=== PATIENT | male | born 1950 | race Caucasian/White ===

== ENCOUNTER 2017-02-23 16:32 | Inpatient (IN) ==
[2017-02-23] MEDS ORDERED: 0.9 % Sodium Chloride 1,000 ML IVC ONE (16:47)
--- NOTE | 2017-02-23 16:52 | Emergency Department Note ---
Disposition Clinical Impression: Generalized weakness Disposition: Admitted As Inpatient Condition: Fair Time of Disposition: 19:00 Weakness HPI - General Chief complaint: ED Weakness Stated complaint: FALL/WEAKNESS Time Seen by Provider: 02/23/17 16:36 Source: patient, EMS Limitations: no limitations Nursing Notes Reviewed: Yes Vital Signs Reviewed: Yes - History of Present Illness HPI Narrative: 66-year-old male presents generalized weakness for the last 3 days. Patient is a history of 2 strokes, one ischemic or bleeding. Patient does take Plavix but not aspirin. Patient also states that he had a fall today, does not think he hit his head but is unsure. This happened when he was in the bathroom. He states that he has been progressively weak and is unable to ambulate for last few days. She does normally use a cane to ambulate. He felt acutely worse the last 3 or 4 hours prior to arrival, but also had a fall in the morning, last and well was really on Tuesday morning which is 2 days ago. He states that the stroke left him with peripheral weakness but he is normally able to ambulate and have normal ADLs. Patient denies any chest pain and hemoptysis fever chills dysuria hematuria and nausea vomiting Pt Subjective Complaint: generalized weakness/fatigue, difficulty ambulating Onset (ago): day(s) (3) Duration: constant Location: generalized Pain Severity: moderate Pain Scale: 6 If pain, quality: numbness, aching Improves with: none Worsens with: none Associated symptoms: Reports: denies other symptoms. Denies: chest pain, confusion, dark stools, diaphoresis, headaches - Related Data Home Medications Medication Instructions Recorded Confirmed Amoxicillin [Amoxil] 1,000 mg PO BID 02/23/17 02/23/17 Citalopram Hydrobromide 20 mg PO DAILY 02/23/17 02/23/17 [Citalopram HBr] Clarithromycin [Biaxin] 500 mg PO BID 02/23/17 02/23/17 Clopidogrel [Plavix] 75 mg PO DAILY 02/23/17 02/23/17 Lisinopril [Zestril] 10 mg PO DAILY 02/23/17 02/23/17 Metoprolol [Lopressor] 50 mg PO BID 02/23/17 02/23/17 Omeprazole [PriLOSEC] 20 mg PO BID 02/23/17 02/23/17 Rosuvastatin Calcium [Rosuvastatin 5 mg PO DAILY 02/23/17 02/23/17 Calcium] Allergies Allergy/AdvReac Type Severity Reaction Status Date / Time No Known Allergies Allergy Verified 05/19/16 09:40 All systems ED: reviewed and negative except as stated. Review of Systems: As Per HPI Constitutional: Reports: as per HPI, weakness. Denies: fever, chills Eyes: Denies: eye pain ENT ED: Denies: ear pain Cardiovascular: Denies: chest pain Respiratory: Denies: cough, dyspnea Gastrointestinal: Denies: abdominal pain, nausea Genitourinary: Denies: urgency, dysuria Musculoskeletal: Denies: back pain Integumentary: Denies: rash Neurological: Reports: as per HPI, weakness. Denies: headache, numbness, paresthesias, abnormal gait Psychiatric: Denies: anxiety Endocrine: Denies: fatigue Past Medical History - Past Medical History Attestation: Yes The following information was validated with the patient. Source: patient Medical history: Reports: CVA, hyperlipidemia, myocardial infarction, TIA Psychiatric history: Reports: no psych history - Social History Smoking Status: Current every day smoker Alcohol use: Reports: none Drug use: Reports: none Physical Exam Constitutional: NAD, vital signs reviewed elevated blood pressure Eyes: PERRLA, sclera anicteric ENT & Mouth: MM dry Neck: normal inspection, neck is supple Resp: CTA bilaterally, no resp distress CV: RRR, no m/g/r GI: normal inspection, soft, no guarding or rigidity Neuro: A&O3, CNII-XII grossly intact, 3 out of 5 muscle strength upper extremity , 2 out of 5 muscle strength bilateral lower extremity, diplopia on visual testing testing, visual rodriguez intact, mild dysmetria with finger to nose testing. Skin: on limited exam, skin intact with no rashes or lesions - General Limitations: no limitations General appearance: alert Course Course Narrative: 66-year-old male with generalized weakness, history of strokes, his NIH scale is 7 but his deficits are bilateral and is way outside of the window for TPA, this time plan is for CT head stat basic lab work blood cultures CBC BMP troponin, TSH plan is for likely admission as his gait is not testable due to weakness - Reevaluation(s) Reevaluation #1: Patient admitted to the hospitalist Dr. Pierre accepted. Vital Signs Temperature 98 F 02/23/17 16:34 Pulse Rate 63 02/23/17 16:34 Respiratory Rate 22 02/23/17 16:34 Blood Pressure 200/129 02/23/17 16:34 O2 Sat by Pulse Oximetry 95 02/23/17 16:34 Temperature 97.8 F 02/23/17 19:13 Pulse Rate 59 02/23/17 19:13 Respiratory Rate 18 02/23/17 19:13 Blood Pressure 163/105 02/23/17 19:13 O2 Sat by Pulse Oximetry 95 02/23/17 19:13 Oxygen Delivery Oxygen Delivery Room Air Weakness - Differential Diagnosis Differential Diagnosis: Likely: acute myocardial infarction, hypoglycemia, sepsis/infection, dehydration - Medical Records Medical records reviewed: Yes I reviewed the patient's medical records. - Lab Data Lab results reviewed: Yes I reviewed the patient's lab results. Result diagrams: 02/23/17 16:55 02/23/17 16:55 Lab Results 02/23/17 02/23/17 02/23/17 Range/Units 16:41 16:55 16:55 WBC (4.3-11.1) K/mcL RBC (4.19-5.50) M/mcL Hgb (12.9-16.9) g/dL Hct (37.5-50.1) % MCV (83.0-100.0) fL MCH (28.0-33.3) pg MCHC (31.6-35.5) g/dL RDW (11.5-14.5) % Plt Count (140-400) K/mcL MPV (9.4-12.4) fL Immature Gran % (0-4) % Seg Neutrophils % % Lymphocytes % % Monocytes % % Eosinophils % % Basophils % % Neutrophils # (1.6-8.9) K/mcL Lymphocytes # (0.6-4.6) K/mcL Monocytes # (0.0-1.3) K/mcL Eosinophils # (0.0-0.6) K/mcL Basophils # (0.0-0.2) K/mcL Sodium (136-145) mEq/L Potassium (3.5-4.5) mEq/L Chloride (98-109) mEq/L Carbon Dioxide (19-29) mEq/L BUN (8-26) mg/dL Creatinine (0.72-1.25) mg/dL Est GFR ( Amer) (> 60) Est GFR (Non-Af Amer) (> 60) BUN/Creatinine Ratio (6-26) Glucose (70-99) mg/dL POC Glucose 94 H (58-89) Calculated Osmolality (280-300) Lactic Acid 0.8 (0.5-2.2) mmol/L Calcium (8.6-10.8) mg/dL Phosphorus 3.3 (2.3-4.7) mg/dL Magnesium 2.2 (1.6-2.6) mg/dL Total Bilirubin (0.2-1.2) mg/dL AST (5-34) Units/L ALT (0-55) Units/L Alkaline Phosphatase (38-126) Units/L Creatine Kinase 163 (30-200) Units/L Troponin I (0-0.03) ng/mL Serum Total Protein (6.0-8.3) g/dL Albumin (3.5-5.0) g/dL Globulin (2.4-3.5) g/dL Albumin/Globulin Ratio (1.1-2.2) TSH 0.964 (0.350-4.840) mcIU/mL Urine Color (Yellow) Urine Clarity (Clear) Urine pH (5.0-8.0) pH Units Ur Specific [place] (1.010-1.025) Urine Protein (Neg-Trace) mg/dL Urine Glucose (UA) (Normal) mg/dL Urine Ketones (Negative) mg/dL Urine Blood (Negative) Urine Nitrite (Negative) Urine Bilirubin (Negative) Urine Urobilinogen (Normal) mg/dL Ur Leukocyte Esterase (Negative) Ur Culture Indicated? (NO) 02/23/17 02/23/17 02/23/17 Range/Units 16:55 16:55 16:55 WBC 8.8 (4.3-11.1) K/mcL RBC 4.67 (4.19-5.50) M/mcL Hgb 15.0 (12.9-16.9) g/dL Hct 45.0 (37.5-50.1) % MCV 96.4 (83.0-100.0) fL MCH 32.1 (28.0-33.3) pg MCHC 33.3 (31.6-35.5) g/dL RDW 12.3 (11.5-14.5) % Plt Count 285 (140-400) K/mcL MPV 9.6 (9.4-12.4) fL Immature Gran % 0.6 (0-4) % Seg Neutrophils % 61.8 % Lymphocytes % 25.8 % Monocytes % 8.0 % Eosinophils % 3.1 % Basophils % 0.7 % Neutrophils # 5.5 (1.6-8.9) K/mcL Lymphocytes # 2.3 (0.6-4.6) K/mcL Monocytes # 0.7 (0.0-1.3) K/mcL Eosinophils # 0.3 (0.0-0.6) K/mcL Basophils # 0.1 (0.0-0.2) K/mcL Sodium 141 (136-145) mEq/L Potassium 4.5 (3.5-4.5) mEq/L Chloride 104 (98-109) mEq/L Carbon Dioxide 30 H (19-29) mEq/L BUN 10 (8-26) mg/dL Creatinine 1.09 (0.72-1.25) mg/dL Est GFR ( Amer) > 60 (> 60) Est GFR (Non-Af Amer) > 60 (> 60) BUN/Creatinine Ratio 9 (6-26) Glucose 94 (70-99) mg/dL POC Glucose (58-89) Calculated Osmolality 291 (280-300) Lactic Acid (0.5-2.2) mmol/L Calcium 9.7 (8.6-10.8) mg/dL Phosphorus (2.3-4.7) mg/dL Magnesium (1.6-2.6) mg/dL Total Bilirubin 0.7 (0.2-1.2) mg/dL AST 21 (5-34) Units/L ALT 16 (0-55) Units/L Alkaline Phosphatase 87 (38-126) Units/L Creatine Kinase (30-200) Units/L Troponin I 0.01 (0-0.03) ng/mL Serum Total Protein 8.3 (6.0-8.3) g/dL Albumin 4.2 (3.5-5.0) g/dL Globulin 4.1 H (2.4-3.5) g/dL Albumin/Globulin Ratio 1.0 L (1.1-2.2) TSH (0.350-4.840) mcIU/mL Urine Color (Yellow) Urine Clarity (Clear) Urine pH (5.0-8.0) pH Units Ur Specific [place] (1.010-1.025) Urine Protein (Neg-Trace) mg/dL Urine Glucose (UA) (Normal) mg/dL Urine Ketones (Negative) mg/dL Urine Blood (Negative) Urine Nitrite (Negative) Urine Bilirubin (Negative) Urine Urobilinogen (Normal) mg/dL Ur Leukocyte Esterase (Negative) Ur Culture Indicated? (NO) 02/23/17 Range/Units 17:03 WBC (4.3-11.1) K/mcL RBC (4.19-5.50) M/mcL Hgb (12.9-16.9) g/dL Hct (37.5-50.1) % MCV (83.0-100.0) fL MCH (28.0-33.3) pg MCHC (31.6-35.5) g/dL RDW (11.5-14.5) % Plt Count (140-400) K/mcL MPV (9.4-12.4) fL Immature Gran % (0-4) % Seg Neutrophils % % Lymphocytes % % Monocytes % % Eosinophils % % Basophils % % Neutrophils # (1.6-8.9) K/mcL Lymphocytes # (0.6-4.6) K/mcL Monocytes # (0.0-1.3) K/mcL Eosinophils # (0.0-0.6) K/mcL Basophils # (0.0-0.2) K/mcL Sodium (136-145) mEq/L Potassium (3.5-4.5) mEq/L Chloride (98-109) mEq/L Carbon Dioxide (19-29) mEq/L BUN (8-26) mg/dL Creatinine (0.72-1.25) mg/dL Est GFR ( Amer) (> 60) Est GFR (Non-Af Amer) (> 60) BUN/Creatinine Ratio (6-26) Glucose (70-99) mg/dL POC Glucose (58-89) Calculated Osmolality (280-300) Lactic Acid (0.5-2.2) mmol/L Calcium (8.6-10.8) mg/dL Phosphorus (2.3-4.7) mg/dL Magnesium (1.6-2.6) mg/dL Total Bilirubin (0.2-1.2) mg/dL AST (5-34) Units/L ALT (0-55) Units/L Alkaline Phosphatase (38-126) Units/L Creatine Kinase (30-200) Units/L Troponin I (0-0.03) ng/mL Serum Total Protein (6.0-8.3) g/dL Albumin (3.5-5.0) g/dL Globulin (2.4-3.5) g/dL Albumin/Globulin Ratio (1.1-2.2) TSH (0.350-4.840) mcIU/mL Urine Color Yellow (Yellow) Urine Clarity Clear (Clear) Urine pH 7.0 (5.0-8.0) pH Units Ur Specific [place] 1.008 L (1.010-1.025) Urine Protein Negative (Neg-Trace) mg/dL Urine Glucose (UA) Normal (Normal) mg/dL Urine Ketones Negative (Negative) mg/dL Urine Blood Negative (Negative) Urine Nitrite Negative (Negative) Urine Bilirubin Negative (Negative) Urine Urobilinogen Normal (Normal) mg/dL Ur Leukocyte Esterase Negative (Negative) Ur Culture Indicated? NO (NO) - Radiology Data Radiology results reviewed: Yes I reviewed the patient's radiology results. Chest X-Ray 02/23/17 16:48 IMPRESSION: No acute cardiopulmonary disease. D/ / Placido Florian MD / Placido Florian MD Interpreting Provider: Placido Florian MD Head CT 02/23/17 16:48 IMPRESSION: No acute intracranial abnormality. D/ / Alexandre Kevin MD / Alexandre Kevin MD Interpreting Provider: Alexandre Kevin MD - EKG Data EKG attestation: Yes I reviewed and interpreted this EKG. EKG shows normal: sinus rhythm (63 bpm MO 176 QRS 97 QTc 413 unchanged from previous EKG in May) [place]ks/QRS: RBBB Interpretation: no acute changes - Core Measures AMI Core Measures Followed: No Measure Exclusions: not indicated NIH Stroke Scale - Level of Consciousness LOC: Alert - LOC Questions LOC Questions: Answers both correctly - LOC Commands LOC Commands: Performs both correctly - Best Gaze Best Gaze: Normal - Visual Visual: No visual loss - Facial Palsy Facial Palsy: Normal - Motor Arms Motor Arm-Left: Drift, does NOT hit bed Motor Arm-Right: Drift, does NOT hit bed - Motor Legs Motor Leg-Left: Some effort against gravity, limb drifts to bed Motor Leg-Right: Some effort against gravity, limb drifts to bed - Limb Ataxia Limb Ataxia: Absent of affected limb too weak to perform exam - Sensory Sensory: Normal - Best Language Best Language: Mild to moderate aphasia. Examiner can identify picture from response - Dysarthria Dysarthria: Normal - Extinction and Inattention Extinction and Inattention: Normal - NIHSS Total Score NIHSS Total Score: 7
[2017-02-23 17:05] LABS: Basophils # 0.1 K/mcL (0.0-0.2); Basophils % 0.7 %; Eosinophils # 0.3 K/mcL (0.0-0.6); Eosinophils % 3.1 %; Immature Granulocytes % 0.6 % (0-4); Lymphocytes # 2.3 K/mcL (0.6-4.6); Lymphocytes % 25.8 %; Mean Corpuscular HGB Conc 33.3 g/dL (31.6-35.5); Mean Corpuscular Hemoglobin 32.1 pg (28.0-33.3); Mean Corpuscular Volume 96.4 fL (83.0-100.0); Mean Platelet Volume 9.6 fL (9.4-12.4); Monocytes # 0.7 K/mcL (0.0-1.3); Neutrophils # 5.5 K/mcL (1.6-8.9); Platelet Count 285 K/mcL (140-400); Red Blood Count 4.67 M/mcL (4.19-5.50); Red Cell Distribution Width 12.3 % (11.5-14.5); Segmented Neutrophils % 61.8 %
--- NOTE | 2017-02-23 17:13 | Emergency Department Note ---
Disposition Condition: Good Referrals: Ruben Murguia Jr, MD [Primary Care Provider] - Forms: ED Satisfaction Letter Weakness HPI - General Chief complaint: ED Weakness Stated complaint: FALL/WEAKNESS Time Seen by Provider: 02/23/17 16:36 Source: patient, EMS Limitations: no limitations - History of Present Illness Pt Subjective Complaint: generalized weakness/fatigue, difficulty ambulating Pain Scale: 6 - Related Data Previous Rx's Medication Instructions Recorded Azithromycin [Zithromax] 250 mg PO DAILY #5 tablet 05/19/16 MethylPREDNISolone 4 mg PO DAILY #21 tab 05/19/16 [MethylPREDNISolone Dose Pack] OxyCODONE/APAP 10/325 [Percocet 1 each PO Q6HR PRN #12 tablet 05/19/16 10/325 MG] Allergies Allergy/AdvReac Type Severity Reaction Status Date / Time No Known Allergies Allergy Verified 05/19/16 09:40 Past Medical History - Past Medical History Medical history: Reports: CVA, hyperlipidemia, myocardial infarction, TIA Psychiatric history: Reports: no psych history - Social History Smoking Status: Current every day smoker Alcohol use: Reports: none Drug use: Reports: none Physical Exam - General Limitations: no limitations General appearance: alert Course Vital Signs Temperature 98 F 02/23/17 16:34 Pulse Rate 63 02/23/17 16:34 Respiratory Rate 22 02/23/17 16:34 Blood Pressure 200/129 02/23/17 16:34 O2 Sat by Pulse Oximetry 95 02/23/17 16:34 Temperature 98 F 02/23/17 16:34 Pulse Rate 63 02/23/17 16:34 Respiratory Rate 22 02/23/17 16:34 Blood Pressure 200/129 02/23/17 16:34 O2 Sat by Pulse Oximetry 95 02/23/17 16:34 Oxygen Delivery Oxygen Delivery Room Air
--- NOTE | 2017-02-23 17:16 | Emergency Department Note ---
START Narrative - START START: I examined this patient and my medical decision-making was reviewed with the Resident Physician. I agree with the documented findings, disposition and treatment plan as described except to the extent set forth below. 66 year old male presents to the ED with complaints of increased falls "legs going out from underneath him," and states that he has had two strokes in the past and he was left with defecits from his previous strokes including bilateral weakness which at this time has not changed and no new neurological symptoms at this time. Yohana states that ealrier today he was in the bathrub and had a fall but denies hitting his head although he is currently on plavix. At baseline yohana has a high NIH scale. We will do a stroke eval and weakness workup and then likel admit to medince.
[2017-02-23 17:19] LABS: Alanine Aminotransferase 16 Units/L (0-55); Albumin 4.2 g/dL (3.5-5.0); Alkaline Phosphatase 87 Units/L (38-126); Aspartate Amino Transferase 21 Units/L (5-34); BUN/Creatinine Ratio 9 (6-26); Bilirubin,Total 0.7 mg/dL (0.2-1.2); Blood Urea Nitrogen 10 mg/dL (8-26); Calcium 9.7 mg/dL (8.6-10.8); Carbon Dioxide 30 mEq/L (19-29); Chloride 104 mEq/L (98-109); Globulin 4.1 g/dL (2.4-3.5); Glucose 94 mg/dL (70-99); Magnesium 2.2 mg/dL (1.6-2.6); Osmolality,Calculated 291 (280-300); Phosphorous 3.3 mg/dL (2.3-4.7); Potassium 4.5 mEq/L (3.5-4.5); Sodium 141 mEq/L (136-145); Total Protein 8.3 g/dL (6.0-8.3); eGFR For African Americans > 60 (> 60); eGFR For Non-African Americans > 60 (> 60)
[2017-02-23 17:30] LABS: Bilirubin,Urine Negative (Negative); Blood,Urine Negative (Negative); Clarity,Urine Clear (Clear); Color,Urine Yellow (Yellow); Glucose,Urine (UA) Normal (Normal); Ketones,Urine Negative (Negative); Leukocyte Esterase,Urine Negative (Negative); Nitrite,Urine Negative (Negative); Protein,Urine Negative (Neg-Trace); Specific Gravity,Urine 1.008 (1.010-1.025); Urobilinogen,Urine Normal (Normal)
[2017-02-23 17:40] LABS: Thyroid Stimulating Hormone 0.964 mcIU/mL (0.350-4.840)
[2017-02-23] MEDS ORDERED: Naloxone 0.4 MG/ML INJ IVP PRN (21:19)
--- NOTE | 2017-02-23 21:28 | Internal Med History&Physical ---
Date of Encounter: 02/23/17 Time of Encounter: 21:24 Assessment and Plan (1) Neurologic abnormality Current visit: Yes Status: Acute b/l LE weakness - uncertain whether he has had a subacute event based on worsening over the last few weeks and sudden decompensation today - but ??? 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 Hough is a 66 year old male who presents with subacute to acute on chronic LE weakness. He has a hx of HTN and 2 strokes. First stroke was hemorrhagic many years ago. Most recently, he developed ischemic CVA in June 2016 with caused LLE weakness and is on DAPT. He is established with Dr Joshua of neurology. He has had worsening LE weakness since the stroke in June. He uses a cane/walker. His LLE is weaker than his RLE. Over the past few weeks, he reported progressive LE weakness but today since noon, developed profound weakness on b/l LE to the extent that he is unable to move or raise them. No gross sensory deficits reported. He has fallen 2 x today as a result. On review, he notes of dizziness and double vision in the past few weeks. EKG personally reviewed with rate 63 XR/XR chest 1V portable IMPRESSION: No acute cardiopulmonary disease. CT/CT head/brain wo con IMPRESSION: No acute intracranial abnormality. Past Med Surg Social Fam HX - Past Medical History Medical history: CVA, hyperlipidemia, myocardial infarction, TIA Psychiatric history: no psych history - Past Surgical History Surgical History: no surgical history - Social History Smoking Status: Current every day smoker Smokeless Tobacco Status: No Alcohol use: none Drug use: none - Family History Mother Living Status: Age at : 76 Cause of : dm complications Hx Family Cardiac Disorders: Yes (VT, stents) Hx Family Respiratory Disorders: No Hx Family Cancer: No Hx Family GI Disorders: No Hx Family Genitourinary Disorders: No Hx Family Endocrine Disorder: Yes (dm) Hx Family Musculoskeletal Disorders: No Hx Family Neuromuscular Disorders: No Hx Family Neurologic Disorders: No Hx Family HEENT Disorders: No Hx Family Autoimmune Disorders: No Hx Family Reproductive Disorders: No Hx Family Psychosocial Disorders: No Hx Family Medical Disorders: No Father Living Status: Age at : 50 Cause of : suicide Hx Family Cardiac Disorders: No Hx Family Respiratory Disorders: No Hx Family Cancer: No Hx Family GI Disorders: No Hx Family Genitourinary Disorders: No Hx Family Endocrine Disorder: No Hx Family Musculoskeletal Disorders: No Hx Family Neuromuscular Disorders: No Hx Family Neurologic Disorders: No Hx Family HEENT Disorders: No Hx Family Autoimmune Disorders: No Hx Family Reproductive Disorders: No Hx Family Psychosocial Disorders: No Hx Family Medical Disorders: No Internal Medicine - H&P: Meds Amoxicillin [Amoxil] 1,000 mg PO BID 02/23/17 [History] Citalopram Hydrobromide [Citalopram HBr] 20 mg PO DAILY 02/23/17 [History] Clarithromycin [Biaxin] 500 mg PO BID 02/23/17 [History] Clopidogrel [Plavix] 75 mg PO DAILY 02/23/17 [History] Lisinopril [Zestril] 10 mg PO DAILY 02/23/17 [History] Metoprolol [Lopressor] 50 mg PO BID 02/23/17 [History] Omeprazole [PriLOSEC] 20 mg PO BID 02/23/17 [History] Rosuvastatin Calcium [Rosuvastatin Calcium] 5 mg PO DAILY 02/23/17 [History] 3 Allergy/AdvReac Type Severity Reaction Status Date / Time No Known Allergies Allergy Verified 05/19/16 09:40 All Systems PM: A 10-system review of systems was performed and is negative for pertinent findings except as documented above in the HPI. Review of systems: ROS 14 point review of systems reviewed as best as possible given presentation. Pertinent positive or negative as per HPI or otherwise reviewed as negative - Constitutional Vitals: Temp Pulse Resp BP Pulse Ox 97.8 F 59 18 163/105 95 02/23/17 19:13 02/23/17 19:13 02/23/17 19:13 02/23/17 19:13 02/23/17 19:13 Exam: General - AAO x 3 Psych - Appropriate affect/speech. No agitation Eyes - GARY. Eye lids intact. No scleral icterus Neuro - No gross CN deficit on evaluation. UE power 4+/5 bilaterall. LE power 0/ 5 bilaterally. Gross sensation wnl Heart - Sinus. RRR. S1 and S2 present. No added HS/murmurs appreciated. No elevated JVD appreciated. Lung - Adequate air entry b/l, No crackles/wheezes appreciated GI - Soft, non-tender. No hepatosplenomegaly/ascites. BS+ - No CVA/suprapubic tenderness or palpable bladder distension Skin - Intact. No rash/petechiae/ecchymosis. Warm extremities MSK - Joints with normal ROM. No joint swellings Internal Med - H&P Results - Labs CBC & Chem 7: 02/23/17 16:55 02/23/17 16:55
[2017-02-23] MEDS: Ringers Solution, Lactated 1,000 ML IVC SCH (22:25)
[2017-02-24 05:02] LABS: Basophils % 0.6 %; Eosinophils # 0.2 K/mcL (0.0-0.6); Eosinophils % 3.6 %; Hematocrit 38.4 % (37.5-50.1); Immature Granulocytes % 0.5 % (0-4); Lymphocytes # 1.7 K/mcL (0.6-4.6); Lymphocytes % 25.7 %; Mean Corpuscular HGB Conc 33.3 g/dL (31.6-35.5); Mean Corpuscular Hemoglobin 32.2 pg (28.0-33.3); Mean Corpuscular Volume 96.5 fL (83.0-100.0); Mean Platelet Volume 9.8 fL (9.4-12.4); Monocytes # 0.6 K/mcL (0.0-1.3); Monocytes % 9.3 %; Platelet Count 231 K/mcL (140-400); Red Blood Count 3.98 M/mcL (4.19-5.50); Red Cell Distribution Width 12.3 % (11.5-14.5); Segmented Neutrophils % 60.3 %
[2017-02-24 05:03] LABS: Hemoglobin 12.8 g/dL (12.9-16.9)
[2017-02-24 05:11] LABS: Alanine Aminotransferase 12 Units/L (0-55); Albumin/Globulin Ratio 0.9 (1.1-2.2); Alkaline Phosphatase 68 Units/L (38-126); Aspartate Amino Transferase 17 Units/L (5-34); BUN/Creatinine Ratio 15 (6-26); Bilirubin,Total 0.4 mg/dL (0.2-1.2); Blood Urea Nitrogen 13 mg/dL (8-26); Carbon Dioxide 26 mEq/L (19-29); Chloride 107 mEq/L (98-109); Chol/HDL Ratio 4.7 (0-4.9); Cholesterol 117 mg/dL (< 200); Globulin 3.4 g/dL (2.4-3.5); Glucose 99 mg/dL (70-99); HDL Cholesterol 25 mg/dL (40-59); LDL Cholesterol,Calculated 63 mg/dL (0-99); Osmolality,Calculated 290 (280-300); Potassium 4.2 mEq/L (3.5-4.5); Sodium 140 mEq/L (136-145); Triglycerides 143 mg/dL (< 150); eGFR For African Americans > 60 (> 60); eGFR For Non-African Americans > 60 (> 60)
[2017-02-24 05:12] LABS: Albumin 3.2 g/dL (3.5-5.0); Total Protein 6.6 g/dL (6.0-8.3)
[2017-02-24] MEDS ORDERED: *HR* Enoxaparin 30 MG/0.3 ML SYRINGE SQ SCH (06:00)
[2017-02-24] MEDS ORDERED: methylPREDNISolone 125 MG/2 ML VIAL IVP ONE (08:27)
[2017-02-24] MEDS: Ringers Solution, Lactated 1,000 ML IVC SCH (09:30)
--- NOTE | 2017-02-24 12:40 | Discharge Summary ---
Date of Encounter: 02/24/17 Time of Encounter: 12:37 - Discharge Diagnosis (1) Generalized weakness Priority: Primary Status: Resolved Comments: Presented with lateral lower extremity weakness and paresthesias; symptoms resolved spontaneously without intervention. Head CT negative, brain MRI negative for acute infarct. Patient reports being treated for recurrent H. pylori infection; suspect generalized weakness and fatigue secondary to acute illness and known degenerative lumbar spine processes. Received one-time dose IV steroids. Remained neurologically intact, no symptom recurrence. Follow-up with orthopedic physician as previously planned. (2) HTN (hypertension) Priority: Primary Status: Chronic Comments: per hx. uncontrolled with SBP's in 200s. Hold NABIL increased with movement and BP. Continue NABIL at higher dose, home BB. Recommend follow-up with PCP within one week for BP recheck. Qualifiers: Hypertension type: essential hypertension Qualified Code(s): I10 - Essential (primary) hypertension (3) Chronic back pain Priority: Primary Status: Chronic Comments: per hx. suspect this contributed to lower extremity weakness and paresthesias. Received one-time dose IV steroids. Symptoms resolved at time of discharge. Follow-up with ortho as previously planned in March. Qualifiers: Back pain location: low back pain Back pain laterality: bilateral Sciatica presence: without sciatica Qualified Code(s): M54.5 - Low back pain; G89.29 - Other chronic pain; G89.29 - Other chronic pain (4) CVA (cerebral vascular accident) Priority: Secondary Status: Chronic Comments: per hx. presented with lower extremity weakness and paresthesia. Head CT non- acute, rain MRI with evidence of previous strokes otherwise non-acute. Evaluated by neurology who did not suspect neurological etiology. Continue home BB, Plavix, statin. Follow-up with neurology as previously planned. Qualifiers: Laterality of affected vessel: unspecified Qualified Code(s): I63.019 - Cerebral infarction due to thrombosis of unspecified vertebral artery (5) Helicobacter pylori (H. pylori) Priority: Secondary Status: Acute Comments: per patient reported history. Continue home amoxicillin, clarithromycin, PPI. Follow-up with GI as previously scheduled. - Discharge Medications Prescriptions: Lisinopril [Zestril] 20 mg PO DAILY #60 tablet Home Medications: Amoxicillin [Amoxil] 1,000 mg PO BID 02/23/17 [History] Citalopram Hydrobromide [Citalopram HBr] 20 mg PO DAILY 02/23/17 [History] Clarithromycin [Biaxin] 500 mg PO BID 02/23/17 [History] Clopidogrel [Plavix] 75 mg PO DAILY 02/23/17 [History] Metoprolol [Lopressor] 50 mg PO BID 02/23/17 [History] Omeprazole [PriLOSEC] 20 mg PO BID 02/23/17 [History] Rosuvastatin Calcium 5 mg PO DAILY 02/23/17 [History] Lisinopril [Zestril] 20 mg PO DAILY #60 tablet 02/24/17 [Rx] Allergies/Adverse Reactions: 3 Allergy/AdvReac Type Severity Reaction Status Date / Time No Known Allergies Allergy Verified 05/19/16 09:40 Procedures/tests Complete & Pending: Procedures Performed prior 72 hours Category Date Time Status MR head/brain wo con [MR] Routine MRI 02/23/17 21:21 Completed Date of admission: 02/23/17 21:19 Primary care physician: Ruben Murguia Jr, MD Consults: 02/23/17 21:21 Consult to Neurology [CONS] Routine Consulting Provider: Neurology [facility] Reason for Consult: subacute, acute on chronic LE weakness Call Completed: No Consult to Occupational Therapy [CONS] Routine Comment: Evaluate, develop and implement POC Reason for Consult: ambulate and assess Consult to Physical Therapy [CONS] Routine Comment: Evaluate, develop and implement POC Reason for Consult: ambulate assess for placement need Discharging clinician: Cleopatra Finn Anticipated date of discharge: 02/24/17 - Patient Status Disposition: Home, Self-Care Condition: Good Functional capacity at discharge: uses cane/walker Overall status at discharge: patient is back to baseline - Discharge Instructions Instructions: Hypertension (DC) Follow Up With: Ruben Murguia Jr, MD [Primary Care Provider] - 03/03/17 10:00 am (YOU WILL SEE DR. REBEL KAUR ) - Diet and Activity Activity: ambulate only with your walker, increase activity as tolerated Diet: low fat, low cholesterol Interval History: Seen and examined at bedside. Patient is new to me, information obtained from chart review and patient report. Patient says he feels back to baseline, symptoms are now resolved. He has known chronic back pain and has follow-up appointment with orthopedic surgery in March. Says he feels better would like to discharge home. His blood pressure has been elevated and home lisinopril has been increased. Anticipate discharge home once blood pressure trending down. Discussed case with Dr. Weldon who does not believe symptoms were neurologic in etiology. No further neurological testing warranted at this time. He has no complaints other than wanting to go home. Specifically denies chest pain, no shortness of breath, no lower extremity. Esthesia, no weakness, no numbness tingling, no bowel or bladder incontinence. - Time Spent with Patient Total time spent providing and/or coordinating discharge services: - Constitutional Vitals: Temp Pulse Resp BP Pulse Ox 97.5 F L 61 18 186/108 97 02/24/17 06:42 02/24/17 06:42 02/24/17 06:42 02/24/17 07:00 02/24/17 06:42 General appearance: Present: A&O X 3, morbidly obese - Head Head exam: Present: atraumatic, normocephalic - Eye Eye exam: Present: PERRL, conjuntiva pink, sclera anicteric Pupils: Present: PERRL - Neck Neck exam general surgery: Present: supple, trachea midline. Absent: lymphadenopathy - Respiratory Respiratory exam: Present: CTAB. Absent: accessory muscle use, rales, rhonchi, wheezes - Cardiovascular Cardiovascular exam: Present: RRR, +S1, +S2. Absent: diastolic murmur, gallop, rubs, systolic murmur - GI/Abdominal GI/Abdominal exam: Present: normal bowel sounds, soft, no peritoneal signs. Absent: distended, tenderness - Extremities Exam Extremities exam: Present: warm, radial pulses palpable and symmetrical. Absent : calf tenderness, cyanotic, pedal edema - Neurological Exam Neurological exam: Present: CN II-XII intact, oriented X3, no focal deficits. Absent: pronater drift, facial droop, speech deficit - Skin Skin exam: Present: dry, intact
--- NOTE | 2017-02-24 13:17 | Neurology - Consult Note ---
Date of Encounter: 02/24/17 Time of Encounter: 07:15 Assessment and Plan (1) Lower extremity weakness Current Visit: Yes Status: Acute This patient apparently has a history of significant degenerative lumbar spine disease as well as spondylolisthesis admitted with worsening of lower extremity weakness started after this recent illness. His presentation symptoms certainly not concerning for stroke or TIA though he has a history of a stroke in the past but current symptoms and exam finding seems to be more off from his back than anything else he did have a weakness earlier and baseline he is quite weak but acute worsening was likely related to underlying other metabolic infectious etiologies that may have caused his worsening of his symptoms. Already had a CT of the head is negative MRI of the brain done this morning did not show any acute infarct. He has been evaluated by spine surgery in the past and is scheduled to see orthopedics in [place] next week. His weakness noted to improved as compared to yesterday I did not find any lateralizing sign neither weakness in lower activities reflexes are slightly brisk likely related to underlying degenerative changes. No history symptoms and exam findings to because some of other peripheral disorder like GBS Patient may benefit from IV dose of steroids as well as with physical therapy evaluation As he already showing improvement he could be discharged with follow-up with orthopedics as a scheduled He will be following with Dr. Mackey as outpatient neurology for his history of a stroke Qualifiers: Laterality: bilateral Qualified Code(s): R29.898 - Other symptoms and signs involving the musculoskeletal system (2) Degenerative lumbar spinal stenosis Current Visit: Yes Status: Acute (3) Spondylolisthesis at L5-S1 level Current Visit: Yes Status: Acute History of Present Illness HPI: Mr. Hough is a 66 year old male weakness of boht lower extremeties. He has a hx of HTN and 2 strokes. First stroke was hemorrhagic many years ago. Most recently, he developed ischemic CVA in June 2016 with caused LLE weakness , He see Dr Mackey as out patient, He has had worsening LE weakness since the stroke in June. He uses a cane/walker. according to the patient Over the past few weeks, he is getting lower extremity weakness but on the day of the admission he is noted to have significant weakness that he was unable to get up and raise himself from the chair because of new symptoms he got concern came into the emergency got admitted. Vision also has a history of chronic back problem has significant stenosis of his back he has been evaluated by a spine surgery and was supposed to get a surgical intervention but he does not had a stroke and did not have the surgery because of the stroke nausea schedule to be seen at [facility] IN [place] FOR POSSIBLE BACK SURGERY. he denies symptoms in upper extremities, any difficulty with his speech vision he also denies any bladder or bowel incontinence He was not feeling well for the past the week and has some GI symptoms Past Med Surg Social Fam HX - Past Medical History Medical history: CVA, hyperlipidemia, myocardial infarction, TIA Psychiatric history: no psych history - Past Surgical History Surgical History: no surgical history - Social History Smoking Status: Current every day smoker Smokeless Tobacco Status: No Alcohol use: none Drug use: none - Family History Mother Living Status: Age at : 76 Cause of : dm complications Hx Family Cardiac Disorders: Yes (NH, stents) Hx Family Respiratory Disorders: No Hx Family Cancer: No Hx Family GI Disorders: No Hx Family Genitourinary Disorders: No Hx Family Endocrine Disorder: Yes (dm) Hx Family Musculoskeletal Disorders: No Hx Family Neuromuscular Disorders: No Hx Family Neurologic Disorders: No Hx Family HEENT Disorders: No Hx Family Autoimmune Disorders: No Hx Family Reproductive Disorders: No Hx Family Psychosocial Disorders: No Hx Family Medical Disorders: No Father Living Status: Age at : 50 Cause of : suicide Hx Family Cardiac Disorders: No Hx Family Respiratory Disorders: No Hx Family Cancer: No Hx Family GI Disorders: No Hx Family Genitourinary Disorders: No Hx Family Endocrine Disorder: No Hx Family Musculoskeletal Disorders: No Hx Family Neuromuscular Disorders: No Hx Family Neurologic Disorders: No Hx Family HEENT Disorders: No Hx Family Autoimmune Disorders: No Hx Family Reproductive Disorders: No Hx Family Psychosocial Disorders: No Hx Family Medical Disorders: No Medications and Allergies Amoxicillin [Amoxil] 1,000 mg PO BID 02/23/17 [History] Citalopram Hydrobromide [Citalopram HBr] 20 mg PO DAILY 02/23/17 [History] Clarithromycin [Biaxin] 500 mg PO BID 02/23/17 [History] Clopidogrel [Plavix] 75 mg PO DAILY 02/23/17 [History] Metoprolol [Lopressor] 50 mg PO BID 02/23/17 [History] Omeprazole [PriLOSEC] 20 mg PO BID 02/23/17 [History] Rosuvastatin Calcium 5 mg PO DAILY 02/23/17 [History] Lisinopril [Zestril] 20 mg PO DAILY #60 tablet 02/24/17 [Rx] 3 Allergy/AdvReac Type Severity Reaction Status Date / Time No Known Allergies Allergy Verified 05/19/16 09:40 All Systems: A 10-system review of systems was performed and is negative for pertinent findings except as documented above in the HPI. Physical Examination - Vital Signs Vital Signs: Initial Vital Signs Temp Pulse Resp BP Pulse Ox 98 F 63 22 200/129 95 02/23/17 16:34 02/23/17 16:34 02/23/17 16:34 02/23/17 16:34 02/23/17 16:34 - Constitutional General appearance: comfortable - Neurologic Sensorimotor examination: intact Detailed motor examination: grossly full strength in all extremities Motor examination - right side: 4/5: deltoids, biceps, triceps, wrist flexion, wrist extension, freight handler, hip flexors, tibialis Anterior, quadriceps, toe extension (EHL), plantarflexion Motor examination - left side: 4/5: deltoids, biceps, triceps, wrist flexion, wrist extension, hip flexors, freight handler, quadriceps, tibialis Anterior, toe extension (EHL), plantarflexion Detailed sensory examination: intact Reflexes: Biceps: 1+, Triceps: 1+, Brachioradialis: 2+, Patella: 2+, Achilles: 2 + Mental Status Examination: awake, alert, oriented to person, oriented to place, oriented to time, follows commands appropriately, answers questions appropriately, no agnosia, no aphasia, no aproxia Cranial nerve examination: PERRL, EOMI, visual rodriguez intact, corneal reflexes brisk symmetrically, sensory to face intact, mastication intact, no facial asymmetry is present, no dysarthria, hearing is intact symmetrically, soft palate elevates bilaterally upon phonation, gag reflex intact, flexes SCM and trapezius muscles symmetrically with full power, tongue protrudes midline, no atrophy or facial fasiculations present Cerebellar examination: no dysmetria Results - Laboratory Findings CBC and BMP: 02/24/17 04:32 02/24/17 04:32 Abnormal lab findings: Abnormal lab results RBC 3.98 M/mcL (4.19-5.50) L 02/24/17 04:32 Hgb 12.8 g/dL (12.9-16.9) L D 02/24/17 04:32 POC Glucose 96 (58-89) H 02/23/17 18:33 Albumin 3.2 g/dL (3.5-5.0) L D 02/24/17 04:32 Albumin/Globulin Ratio 0.9 (1.1-2.2) L 02/24/17 04:32 HDL Cholesterol 25 mg/dL (40-59) L 02/24/17 04:32 Ur Specific [place] 1.008 (1.010-1.025) L 02/23/17 17:03 - Diagnostic Findings Additional findings: MRI of brain showed No evidence of an acute infarct. Chronic infarcts are noted in the right putamen, posterior right periventricular white matter, paramidline of the edith, and cerebellar hemispheres. Moderate chronic microvascular white matter ischemic disease Consult Discharge Plan - Plan Instructions: Hypertension (DC) Referrals: Ruben Murguia Jr, MD [Primary Care Provider] - 03/03/17 10:00 am (YOU WILL SEE DR. LUQUE COMPENSATION AND BENEFITS ANALYST ) Prescriptions: Lisinopril [Zestril] 20 mg PO DAILY #60 tablet
[2017-02-24 15:49] VITALS: BP 180/92
--- NOTE | 2017-02-24 16:40 | Electrocardiograph Report ---
[place] [id number] Test Date: 2017-02-23 Pat Name: Umesh Hough Department: 104 Room: 3B65 Gender: M [employer]: : 1950 Requested By: Garrison Leon Order Number: [id number] Reading MD: Krupa Christopher Measurements Intervals [place] Rate: 63 P: -22 MD: 176 QRS: -70 QRSD: 97 T: 51 QT: 405 QTc: 413 Interpretive Statements SINUS RHYTHM WITH OCCASIONAL SUPRAVENTRICULAR PREMATURE COMPLEXES LEFT ANTERIOR FASCICULAR BLOCK Electronically Signed On 02-24-2017 16:38:15 EST by Krupa Christopher
[2017-02-24 17:16] LABS: Hemoglobin A1C 5.2 %
== END 2017-02-24 16:25 | disposition home or self-care (01) | DRG 948 ==
LOC: EMEROO 16:32 → 3BNU 16:32
PROVIDERS: ADMIT Registered Nurse; ATTEND Registered Nurse

== ENCOUNTER 2018-11-21 12:18 | Observation (INO) ==
[2018-11-21 12:49] LABS: Basophils % 0.4 %; Eosinophils # 0.1 K/mcL (0.0-0.6); Eosinophils % 1.6 %; Hematocrit 37.8 % (37.5-50.1); Hemoglobin 12.5 g/dL (12.9-16.9); Immature Granulocytes % 0.3 % (0-4); Lymphocytes # 1.8 K/mcL (0.6-4.6); Lymphocytes % 26.9 %; Mean Corpuscular HGB Conc 33.1 g/dL (31.6-35.5); Mean Corpuscular Hemoglobin 33.6 pg (28.0-33.3); Mean Corpuscular Volume 101.6 fL (83.0-100.0); Mean Platelet Volume 9.3 fL (9.4-12.4); Monocytes # 0.6 K/mcL (0.0-1.3); Monocytes % 9.1 %; Neutrophils # 4.2 K/mcL (1.6-8.9); Platelet Count 297 K/mcL (140-400); Red Blood Count 3.72 M/mcL (4.19-5.50); Red Cell Distribution Width 13.5 % (11.5-14.5); Segmented Neutrophils % 61.7 %; White Blood Count 6.9 K/mcL (4.3-11.1)
[2018-11-21 13:10] LABS: BUN/Creatinine Ratio 14 (6-26); Blood Urea Nitrogen 14 mg/dL (8-23); Calcium 9.4 mg/dL (8.6-10.3); Carbon Dioxide 27 mEq/L (23-29); Chloride 105 mEq/L (98-107); Glucose 120 mg/dL (70-105); Osmolality,Calculated 292 (280-300); Potassium 4.8 mEq/L (3.5-5.1); Sodium 140 mEq/L (136-145); Troponin I < 0.03 ng/mL (< 0.04); eGFR For African Americans > 60 (> 60); eGFR For Non-African Americans > 60 (> 60)
--- NOTE | 2018-11-21 13:13 | Emergency Department Note ---
Disposition Clinical Impression: Symptomatic bradycardia, Exertional dyspnea Disposition: Admitted As Inpatient Condition: Good Forms: ED Satisfaction Letter Time of Disposition: 13:56 SOB HPI - General Chief Complaint: ED Shortness of Breath/Dyspnea Stated Complaint: SOB Time Seen by Provider: 11/21/18 12:31 Source: patient, EMS Mode of arrival: EMS Limitations: no limitations Nursing Notes Reviewed: Yes Vital Signs Reviewed: Yes - History of Present Illness This is a 68-year-old male with a history of CAD last that was in the late 90s who presents via EMS due to shortness of breath, dizziness and diaphoresis. The patient reports he has had shortness of breath for the last several days. Seems to be more with any type of activity. States today he was washing his truck whenever he broke out in a sweat and felt more short of breath. was on to say he has been complaining of dizziness over the last few days whenever he walks. No syncopal episode. No chest pain. He follows regularly with cardiology. Denies any recent illnesses. No other complaints. Pt Subjective Complaint: shortness of breath Onset (ago): day(s) Context: occurred during exertion Severity: moderate Consistency/Duration: intermittent Improves with: rest Worsens with: exertion Associated symptoms: Denies: chest pain, fever, cough Treatment prior to arrival: none Cough present: No Sputum Amount: None - Related Data Home oxygen amount: none Home Medications Medication Instructions Recorded Confirmed Citalopram Hydrobromide 20 mg PO DAILY 02/23/17 05/17/18 [Citalopram HBr] Metoprolol [Lopressor] 50 mg PO BID 02/23/17 05/17/18 Omeprazole [PriLOSEC] 20 mg PO BID 02/23/17 05/17/18 Rosuvastatin Calcium 5 mg PO DAILY 02/23/17 05/17/18 ALPRAZolam [Xanax 1 MG Tablet] 1 mg PO TID 07/29/17 05/17/18 Amlodipine Besylate 10 mg PO DAILY 07/29/17 05/17/18 Aspirin [Lo-Dose Aspirin EC] 81 mg PO DAILY 07/29/17 05/17/18 Furosemide [Lasix] 20 mg PO DAILY 07/29/17 05/17/18 Gabapentin [Gralise] 600 mg PO TID 07/29/17 05/17/18 Naproxen Sodium [Aleve] 4 tab PO DAILY 07/29/17 05/17/18 Cyanocobalamin (Vitamin B-12) 2,500 mcg PO DAILY 01/25/18 05/17/18 [Vitamin B12] Ferrous Sulfate [Iron] 325 mg PO DAILY 01/25/18 05/17/18 Multivit-Min/Iron/Folic Acid/K 1 each PO DAILY 01/25/18 05/17/18 [Adults Multivitamin Caplet] Previous Rx's Medication Instructions Recorded Folic Acid 1 tab PO DAILY #30 tablet 11/09/17 Rivaroxaban [Xarelto] 20 mg PO DAILY #90 tablet 01/25/18 Allergies Allergy/AdvReac Type Severity Reaction Status Date / Time No Known Allergies Allergy Verified 05/17/18 11:02 All systems ED: reviewed and negative except as stated. Constitutional: Denies: fever Cardiovascular: Denies: chest pain Respiratory: Reports: dyspnea. Denies: cough Gastrointestinal: Denies: abdominal pain, nausea, vomiting Past Medical History - Past Medical History Attestation: Yes The following information was validated with the patient. Source: patient Medical history: Reports: CVA, hyperlipidemia, hypertension, kidney stones, myocardial infarction, TIA Surgical history: Reports: no surgical history Psychiatric history: Reports: no psych history - Social History Smoking Status: Current every day smoker Smokeless Tobacco Status: No Alcohol use: Reports: none Drug use: Reports: none Physical Exam - General Limitations: no limitations General appearance: alert, in no apparent distress - Head Head exam: atraumatic, normocephalic, normal inspection - Eye Eye exam: Present: normal appearance - ENT ENT exam: normal exam - Neck Neck exam: Present: normal inspection - Chest Chest inspection: Present: normal inspection, symmetric chest wall rise - Respiratory Respiratory exam: Present: normal lung sounds bilaterally - Cardiovascular Cardiovascular exam: Present: normal rhythm, bradycardia, irregular rhythm - Abdominal Exam Abdominal exam: Present: soft, Non-Tender. Absent: tenderness, distention, guarding, rigidity - Extremities Exam Extremities exam: Present: normal inspection, full ROM - Expanded Upper Extremity Exam Shoulder exam: Present: normal inspection, full ROM Arm exam: Present: normal inspection, full ROM Elbow exam: Present: normal inspection, full ROM Forearm/Wrist exam: Present: normal inspection, full ROM Hand exam: Present: normal inspection, full ROM - Expanded Lower Extremity Exam Hip/Pelvis exam: Present: normal inspection, full ROM Upper leg exam: Present: normal inspection, full ROM Knee exam: Present: normal inspection, full ROM Lower leg exam: Present: normal inspection, full ROM Ankle exam: Present: normal inspection, full ROM Foot/toe exam: Present: normal inspection, full ROM - Neurological Exam Neurological exam: Present: alert, oriented X3, CN II-XII intact, other (Alert, GCS 15, no focal deficits. Cranial nerves II through XII grossly intact.) - Skin Skin exam: Present: warm, dry Course Course Narrative: Seen and examined. His symptoms are mostly with exertion. Given his underlying CAD plan for EKG, chest x-ray, labs. Anticipate admission. - Reevaluation(s) Reevaluation #1: Labs reviewed with no gross abnormalities. While in the room the patient's heart rate is going down into the 40s. I reviewed his vital signs as 2017 showing he is usually 55-65. No change in his beta consuelo which she did take this morning. His blood pressure is normal. I suspect this point he has symptomatically bradycardia given his exertional symptoms and plan for admission which the patient is in agreement with. Vital Signs Temperature 97.7 F 11/21/18 12:24 Pulse Rate 55 11/21/18 12:24 Respiratory Rate 15 11/21/18 12:24 Blood Pressure 181/95 11/21/18 12:24 O2 Sat by Pulse Oximetry 96 11/21/18 12:24 Temperature 97.7 F 11/21/18 12:24 Pulse Rate 55 11/21/18 12:24 Respiratory Rate 15 11/21/18 12:24 Blood Pressure 181/95 11/21/18 12:24 O2 Sat by Pulse Oximetry 96 11/21/18 12:24 Shortness of Breath/Dyspnea - [facility] Narrative Medical decision making narrative: 68 rolled male presenting with exertional dyspnea, lightheadedness and dizziness for 3 days. His workup is fairly benign here with the exception of his heart rate staying in the 40s to 50s. He has a normal blood pressure and is mentating appropriate. Discussed with the hospitalist, admission for symptomatic bradycardia. - Lab Data Lab results reviewed: Yes I reviewed the patient's lab results. Result diagrams: 11/21/18 12:36 11/21/18 12:36 Lab Results 11/21/18 11/21/1811/21/19 Range/Units 12:36 12:36 12:36 WBC 6.9 (4.3-11.1) K/mcL RBC 3.72 L (4.19-5.50) M/mcL Hgb 12.5 L (12.9-16.9) g/dL Hct 37.8 (37.5-50.1) % MCV 101.6 H (83.0-100.0) fL MCH 33.6 H (28.0-33.3) pg MCHC 33.1 (31.6-35.5) g/dL RDW 13.5 (11.5-14.5) % Plt Count 297 (140-400) K/mcL MPV 9.3 L (9.4-12.4) fL Immature Gran % 0.3 (0-4) % Seg Neutrophils % 61.7 % Lymphocytes % 26.9 % Monocytes % 9.1 % Eosinophils % 1.6 % Basophils % 0.4 % Neutrophils # 4.2 (1.6-8.9) K/mcL Lymphocytes # 1.8 (0.6-4.6) K/mcL Monocytes # 0.6 (0.0-1.3) K/mcL Eosinophils # 0.1 (0.0-0.6) K/mcL Basophils # 0.0 (0.0-0.2) K/mcL Sodium 140 (136-145) mEq/L Potassium 4.8 (3.5-5.1) mEq/L Chloride 105 (98-107) mEq/L Carbon Dioxide 27 (23-29) mEq/L BUN 14 (8-23) mg/dL Creatinine 1.02 (0.70-1.30) mg/dL Est GFR ( Amer) > 60 (> 60) Est GFR (Non-Af Amer) > 60 (> 60) BUN/Creatinine Ratio 14 (6-26) Glucose 120 H (70-105) mg/dL Calculated Osmolality 292 (280-300) Calcium 9.4 (8.6-10.3) mg/dL Troponin I < 0.03 (< 0.04) ng/mL B-Natriuretic Peptide 87 (Less than 100) pg/mL - Radiology Data Radiology results reviewed: Yes I reviewed the patient's radiology results. Chest X-Ray 11/21/18 12:31 IMPRESSION: 1. No acute pulmonary abnormality to account for patient's shortness of breath. 2. Stable mild enlargement of the cardiac silhouette. D/ / Cole Coker MD / Cole Coker MD Interpreting Provider: Cole Coker MD - EKG Data EKG attestation: Yes I reviewed and interpreted this EKG. EKG results narrative: Sinus bradycardia with a rate of 55. Left axis deviation. Normal intervals. Normal R-wave progression. No gross ST elevations or depressions. T-wave inversion in lead 3. No ST depressions. No significant changes from previous EKG dated 02/23/17. Repeat EKG shows sinus bradycardia with rate of 54. Left axis deviation. Prolonged [place] interval of 218. Other intervals normal. No gross ST elevation or depression. No acute ischemic findings. Mile - Mile Situation: Demographics, MOA Background: Presenting Complaint, Relevant PMH, Meds, & Allergies Assessment: Vital Signs, Course and respsone to treatment, Exam Concerns, Patient/Family Expectation, Pertinant Lab Results Recommendation: Barrier(s) to disposition, Recommendation based on pending studies, treatments, or consults Mile Report Given to: Dr. Artur Treadwell Repor Time: 13:56
[2018-11-21] MEDS ORDERED: Naloxone 0.4 MG/ML INJ IVP PRN (14:55)
[2018-11-21] MEDS ORDERED: Ondansetron ODT 4 MG TAB.RAPDIS SL PRN (14:55)
--- NOTE | 2018-11-21 15:34 | Internal Med History&Physical ---
<GertrudebruceMichelle - Last Filed: 11/21/18 16:20> Date of Encounter: 11/21/18 Time of Encounter: 16:10 Internal Medicine - H&P: HPI History of present illness: Mr. Hough is a 68 year old male Internal Medicine - H&P: Meds Citalopram Hydrobromide [Citalopram HBr] 20 mg PO DAILY 02/23/17 [History] Metoprolol [Lopressor] 50 mg PO BID 02/23/17 [History] Omeprazole [PriLOSEC] 20 mg PO BID 02/23/17 [History] Rosuvastatin Calcium 5 mg PO HS 02/23/17 [History] ALPRAZolam [Xanax 1 MG Tablet] 1 mg PO BID 07/29/17 [History] Amlodipine Besylate 10 mg PO DAILY 07/29/17 [History] Aspirin [Lo-Dose Aspirin EC] 81 mg PO DAILY 07/29/17 [History] Furosemide [Lasix] 20 mg PO DAILY 07/29/17 [History] Gabapentin [Gralise] 600 mg PO TID 07/29/17 [History] Naproxen Sodium [Aleve] 4 tab PO DAILY 07/29/17 [History] Folic Acid 1 tab PO DAILY #30 tablet 11/09/17 [Rx] Cyanocobalamin (Vitamin B-12) [Vitamin B12] 2,500 mcg PO DAILY 01/25/18 [History] Ferrous Sulfate [Iron] 325 mg PO DAILY 01/25/18 [History] Multivit-Min/Iron/Folic Acid/K [Adults Multivitamin Caplet] 1 each PO DAILY 01/25/18 [History] Rivaroxaban [Xarelto] 20 mg PO DAILY #90 tablet 01/25/18 [Rx] Allergy/AdvReac Type Severity Reaction Status Date / Time No Known Allergies Allergy Verified 05/17/18 11:02 All Systems PM: A 10-system review of systems was performed and is negative for pertinent findings except as documented above in the HPI. - Constitutional Vitals: Temp Pulse Resp BP Pulse Ox 98.2 F 55 16 200/110 99 11/21/18 15:56 11/21/18 15:56 11/21/18 15:56 11/21/18 16:08 11/21/18 15:56 Internal Med - H&P Results - Labs CBC & Chem 7: 11/21/18 12:36 11/21/18 12:36 Labs: Short CBC 11/21/18 Range/Units 12:36 WBC 6.9 (4.3-11.1) K/mcL Hgb 12.5 L (12.9-16.9) g/dL Hct 37.8 (37.5-50.1) % Plt Count 297 (140-400) K/mcL Neutrophils # 4.2 (1.6-8.9) K/mcL BMP 11/21/18 12:36 Sodium 140 Potassium 4.8 Chloride 105 Carbon Dioxide 27 BUN 14 Creatinine 1.02 Glucose 120 H Calcium 9.4 Cardiac Enzymes 11/21/18 Range/Units 12:36 Troponin I < 0.03 (< 0.04) ng/mL - Impressions ITS Impressions Chest X-Ray 11/21/18 12:31 IMPRESSION: 1. No acute pulmonary abnormality to account for patient's shortness of breath. 2. Stable mild enlargement of the cardiac silhouette. D/ / Cole Coker MD / Cole Coker MD Interpreting Provider: Cole Coker MD - Time Spent With Patient Total time spent is greater than 50% in coordination of care (as documented) at patient's floor/unit and/or counseling patient: - Attending Attestation I saw evaluated and examined this patient and reviewed past medical, family, social histories and objective data including labs and my medical decision- making was reviewed with the Resident Physician, Bess South. I agree with the documented findings, disposition and treatment plan as described except to any changes set forth below. We independently had [id number] contact with the patient. Patient with history of coronary artery disease with previous PCI presented to the ER with complaints of an episode of shortness of breath with dizziness and diaphoresis today. Patient states that his been having these symptoms off and on for the past 5 days but today symptoms for the worse. He had nausea associated with it. No abdominal pain or chest pain. No palpitations. EKG shows sinus bradycardia. No AV block. Troponins are negative. Symptomatic sinus bradycardia: Most likely due to metoprolol use. Hold metoprolol for now. Check TSH. Check echocardiogram. Hypertensive urgency: Blood pressure is severely elevated. Will place patient on lisinopril in addition to amlodipine. We will also place him on intravenous hydralazine as needed. Consider starting carvedilol at a low-dose eventually instead of metoprolol to control his hypertension given his underlying history o f coronary artery disease. Coronary artery disease: Continue home medications. Patient does not have any chest pain. We will trend troponins. <Bess South I - Last Filed: 11/21/18 17:12> Date of Encounter: 11/21/18 Internal Medicine - H&P: HPI History of present illness: Mr. Hough is a 68 year old male with a history of CAD , stroke , hypertension , DVTs presents via EMS due to shortness of breath, dizziness and diaphoresis when he was washing his truck today morning . He state I felt like a drunk . The patient reports he has had shortness of breath as well as nausea and sore throat for the last several days. SOB Seems to be more with any type of activity. No syncopal episode. No chest pain , no lower limb swelling , no cough , no vomiting , no diarrhea or constipation During admission he was found to be bradycardic HR 55 , BP 181/95, RR 15 , patient was placed on telemetry and he continues to be bradycardic . EKG showes Sinus bradycardia with a rate of 55. Left axis deviation. Normal intervals. Normal R-wave progression. No gross ST elevations or depressions. T-wave inversion in lead 3. No ST depressions., CXR was normal , hb 12.5 , wbc 6.9 , creatinine 1.02 . patient denies recent travelling or recent caming . no other complains at this time Past Med Surg Social Fam HX - Past Medical History Medical history: CVA, hyperlipidemia, hypertension, kidney stones, myocardial infarction, TIA Psychiatric history: no psych history - Past Surgical History Surgical History: no surgical history - Social History Smoking Status: Current every day smoker Smokeless Tobacco Status: No Alcohol use: none Drug use: none - Family History Mother Living Status: Hx Family Cardiac Disorders: Yes (ND, stents) Hx Family Respiratory Disorders: No Hx Family Cancer: No Hx Family GI Disorders: No Hx Family Endocrine Disorder: Yes (dm) Hx Family Neuromuscular Disorders: No Hx Family Neurologic Disorders: No Hx Family HEENT Disorders: No Hx Family Autoimmune Disorders: No Father Living Status: Hx Family Cardiac Disorders: No Hx Family Respiratory Disorders: No Hx Family Cancer: No Hx Family GI Disorders: No Hx Family Endocrine Disorder: No Hx Family Neuromuscular Disorders: No Hx Family Neurologic Disorders: No Hx Family HEENT Disorders: No Hx Family Autoimmune Disorders: No All Systems PM: A 10-system review of systems was performed and is negative for pertinent findings except as documented above in the HPI. - Constitutional Vitals: Temp Pulse Resp BP Pulse Ox 97.7 F 50 15 165/102 97 11/21/18 12:24 11/21/18 14:06 11/21/18 15:08 11/21/18 15:08 11/21/18 14:06 Exam: General: no acute distress , A&AX3 HEENT: Atraumatic, Normocephaly, sclera unicteric Neck: supple , Full ROM , trachea midline Cardiac: RRR , S1+. S2+, Lungs: Normal Breath Sounds Bilaterally, No Wheeze, Rales, Rhonchi Abdomen: Soft, Non-Tender ,no organomegaly , +bowel sounds Extremities: No Clubbing, No Cyanosis,or edema , Normal Pulses Skin : intact , Normal color Psychiatric : normal affect, normal mood Nuero : alert, normal gait, oriented X3 Internal Med - H&P Results - Labs CBC & Chem 7: 11/21/18 12:36 11/21/18 12:36 Labs: Short CBC 11/21/18 Range/Units 12:36 WBC 6.9 (4.3-11.1) K/mcL Hgb 12.5 L (12.9-16.9) g/dL Hct 37.8 (37.5-50.1) % Plt Count 297 (140-400) K/mcL Neutrophils # 4.2 (1.6-8.9) K/mcL BMP 11/21/18 12:36 Sodium 140 Potassium 4.8 Chloride 105 Carbon Dioxide 27 BUN 14 Creatinine 1.02 Glucose 120 H Calcium 9.4 Cardiac Enzymes 11/21/18 Range/Units 12:36 Troponin I < 0.03 (< 0.04) ng/mL - Impressions ITS Impressions Chest X-Ray 09/10/19 12:31 IMPRESSION: 1. No acute pulmonary abnormality to account for patient's shortness of breath. 2. Stable mild enlargement of the cardiac silhouette. D/ / Cole Coker MD / Cole Coker MD Interpreting Provider: Cole Coker MD - Assessment and Plan (1) Symptomatic bradycardia Current Visit: Yes Status: Acute Assessment and plan: Patient presented to the ER with complaints of an episode of shortness of breath with dizziness and diaphoresis today most likley due to metoprolol EKG shows sinus bradycardia. No AV block. Troponins are negative. Plan : - hold metoprolol - ECHO -thyroid cascade -continue telemetry -EKG at morning (2) HTN (hypertension) Current Visit: No Status: Chronic Assessment and plan: blood pressure 200/110 recieved IV Hydralazine 10 mg IV hydralazine Q6 PRN lisinopril 5 mg Q6 continue home antihypertensive medication continue monitoring BP Qualifiers: Hypertension type: essential hypertension Qualified Code(s): I10 - Essential (primary) hypertension - Time Spent With Patient Total time spent is greater than 50% in coordination of care (as documented) at patient's floor/unit and/or counseling patient:
[2018-11-21] MEDS: amLODIPine 5 MG TABLET PO SCH (15:48)
[2018-11-21] MEDS: Aspirin Enteric Coated 81 MG Tablet PO SCH (15:50)
[2018-11-21] MEDS: Gabapentin 300 MG CAPSULE PO SCH ×2 (15:52→23:05)
[2018-11-21] MEDS: Multivit/Ca/Min/Fe/FA 1 TAB TABLET PO SCH (15:52)
[2018-11-21] MEDS: Furosemide 20 MG TABLET PO SCH (15:52)
[2018-11-21] MEDS ORDERED: hydrALAZINE 10 MG TABLET PO PRN (16:18)
--- NOTE | 2018-11-21 16:22 | Electrocardiograph Report ---
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
--- NOTE | 2018-11-21 16:23 | Electrocardiograph Report ---
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
[2018-11-21] MEDS ORDERED: Perflutren Lipid Microsphere 1.3 ML in 0.9 % Sodium Chloride 8.7 ML IVP ONE (21:39)
[2018-11-21] MEDS: ALPRAZolam 1 MG TABLET PO SCH (23:05)
[2018-11-22 01:35] LABS: Basophils % 0.6 %; Eosinophils # 0.2 K/mcL (0.0-0.6); Eosinophils % 3.1 %; Hematocrit 36.9 % (37.5-50.1); Hemoglobin 12.2 g/dL (12.9-16.9); Immature Granulocytes % 0.3 % (0-4); Lymphocytes # 2.1 K/mcL (0.6-4.6); Lymphocytes % 30.8 %; Mean Corpuscular HGB Conc 33.1 g/dL (31.6-35.5); Mean Corpuscular Hemoglobin 34.1 pg (28.0-33.3); Mean Corpuscular Volume 103.1 fL (83.0-100.0); Mean Platelet Volume 9.3 fL (9.4-12.4); Monocytes # 0.7 K/mcL (0.0-1.3); Monocytes % 10.4 %; Neutrophils # 3.7 K/mcL (1.6-8.9); Platelet Count 273 K/mcL (140-400); Red Blood Count 3.58 M/mcL (4.19-5.50); Red Cell Distribution Width 13.4 % (11.5-14.5); Segmented Neutrophils % 54.8 %; White Blood Count 6.8 K/mcL (4.3-11.1)
[2018-11-22 01:46] LABS: Prothrombin Time 11.8 Seconds (9.4-12.1)
[2018-11-22 01:48] LABS: Activated Partial Thrombo Time 27.9 Seconds (26.0-36.0)
[2018-11-22 01:56] LABS: BUN/Creatinine Ratio 13 (6-26); Blood Urea Nitrogen 12 mg/dL (8-23); Calcium 8.8 mg/dL (8.6-10.3); Carbon Dioxide 26 mEq/L (23-29); Chloride 106 mEq/L (98-107); Glucose 102 mg/dL (70-105); Osmolality,Calculated 290 (280-300); Potassium 3.7 mEq/L (3.5-5.1); Sodium 140 mEq/L (136-145); eGFR For African Americans > 60 (> 60); eGFR For Non-African Americans > 60 (> 60)
[2018-11-22 01:58] LABS: Troponin I < 0.03 ng/mL (< 0.04)
[2018-11-22 02:11] LABS: Thyroid Stimulating Hormone 1.436 mcIU/mL (0.340-5.600)
[2018-11-22] MEDS: ALPRAZolam 1 MG TABLET PO SCH (08:49)
[2018-11-22] MEDS: Furosemide 20 MG TABLET PO SCH (08:49)
[2018-11-22] MEDS: Multivit/Ca/Min/Fe/FA 1 TAB TABLET PO SCH (08:49)
[2018-11-22] MEDS: Aspirin Enteric Coated 81 MG Tablet PO SCH (08:49)
[2018-11-22] MEDS: Gabapentin 300 MG CAPSULE PO SCH (08:49)
[2018-11-22] MEDS: amLODIPine 5 MG TABLET PO SCH (08:50)
--- NOTE | 2018-11-22 09:08 | Internal Med Progress Note ---
Hospitalist Progress Note - Encounter Date of Encounter: 11/22/18 - Exam Vitals: Temp Pulse Resp BP Pulse Ox 97.6 F 58 14 148/95 94 11/22/18 06:44 11/22/18 06:44 11/22/18 06:44 11/22/18 06:44 11/22/18 06:44 - Assessment and Plan (1) Symptomatic bradycardia Current Visit: Yes Status: Acute (2) HTN (hypertension) Current Visit: No Status: Chronic - Time Spent with Patient Total time spent is greater than 50% in coordination of care (as documented) at patient's floor/unit and/or counseling patient: Internal Medicine: Result - Labs CBC & Chem 7: 11/22/18 01:14 11/22/18 01:14 Labs: Short CBC 11/21/18 11/22/18 Range/Units 12:36 01:14 WBC 6.9 6.8 (4.3-11.1) K/mcL Hgb 12.5 L 12.2 L (12.9-16.9) g/dL Hct 37.8 36.9 L (37.5-50.1) % Plt Count 297 273 (140-400) K/mcL Neutrophils # 4.2 3.7 (1.6-8.9) K/mcL BMP 11/21/18 11/22/18 12:36 01:14 Sodium 140 140 Potassium 4.8 3.7 Chloride 105 106 Carbon Dioxide 27 26 BUN 14 12 Creatinine 1.02 0.89 Glucose 120 H 102 Calcium 9.4 8.8 Cardiac Enzymes 11/21/18 11/22/18 Range/Units 12:36 01:14 Troponin I < 0.03 < 0.03 (< 0.04) ng/mL - ABG Interpretation ABG results: PT/INR, D-dimer PT 11.8 Seconds (9.4-12.1) 11/22/18 01:14 - Impressions Impressions Chest X-Ray 11/21/18 12:31 IMPRESSION: 1. No acute pulmonary abnormality to account for patient's shortness of breath. 2. Stable mild enlargement of the cardiac silhouette. D/ / Cole Coker MD / Cole Coker MD Interpreting Provider: Cole Coker MD Consult Discharge Plan - Plan Referrals: Román Gay [Primary Care Provider] - (2) HTN (hypertension) Qualifiers: Hypertension type: essential hypertension Qualified Code(s): I10 - Essential (primary) hypertension
[2018-11-22 13:39] VITALS: BP 120/83
--- NOTE | 2018-11-22 13:59 | Internal Med Progress Note ---
Hospitalist Progress Note - Encounter Date of Encounter: 11/22/18 - Exam Vitals: Temp Pulse Resp BP Pulse Ox 98.6 F 96 16 120/83 96 11/22/18 11:53 11/22/18 13:36 11/22/18 11:53 11/22/18 13:36 11/22/18 11:53 - Assessment and Plan (1) Symptomatic bradycardia Current Visit: Yes Status: Acute (2) HTN (hypertension) Current Visit: No Status: Chronic - Time Spent with Patient Total time spent is greater than 50% in coordination of care (as documented) at patient's floor/unit and/or counseling patient: Internal Medicine: Result - Labs CBC & Chem 7: 11/22/18 01:14 11/22/18 01:14 Labs: Short CBC 11/22/18 Range/Units 01:14 WBC 6.8 (4.3-11.1) K/mcL Hgb 12.2 L (12.9-16.9) g/dL Hct 36.9 L (37.5-50.1) % Plt Count 273 (140-400) K/mcL Neutrophils # 3.7 (1.6-8.9) K/mcL BMP 11/22/18 01:14 Sodium 140 Potassium 3.7 Chloride 106 Carbon Dioxide 26 BUN 12 Creatinine 0.89 Glucose 102 Calcium 8.8 Cardiac Enzymes 11/22/18 Range/Units 01:14 Troponin I < 0.03 (< 0.04) ng/mL - ABG Interpretation ABG results: PT/INR, D-dimer PT 11.8 Seconds (9.4-12.1) 11/22/18 01:14 - Impressions Impressions Echocardiogram 11/21/18 16:23 Impressions: LVEF 55-60%. Normal LV chamber size, and function. Normal left ventricular diastolic function. Mild concentric left ventricular hypertrophy. Normal right ventricular structure and function. Mild tricuspid regurgitation. No evidence of pulmonary hypertension. Left Ventricular Wall Motion: Rest Echo Findings All wall segments showed normal motion. Findings: Study Quality * Technically adequate exam. ECG Findings * Sinus rhythm with BBB. Left Ventricle * LVEF 55-60%. * Normal LV chamber size, and function. * Normal left ventricular diastolic function. * Mild concentric left ventricular hypertrophy. * Atypical septal motion noted Right Ventricle * Normal right ventricular structure and function. Left Atrium * Normal left atrial size. Right Atrium * Normal right atrial size. Interatrial Septum * Interatrial septum not well evaluated. Aortic Valve * Trileaflet aortic valve. * No aortic regurgitation. * No aortic stenosis. * Mildly sclerotic aortic valve leaflets. Mitral Valve * Mitral annular calcification involving the posterior mitral valve leaflet * No mitral regurgitation. * No mitral stenosis. Tricuspid Valve * Mild tricuspid regurgitation. * No evidence of pulmonary hypertension. * No tricuspid stenosis. * Normal tricuspid valve structure. Pulmonic Valve * Pulmonic valve is not well visualized. Aorta * Normally sized aortic root. Pericardium * The pericardium appears normal. IVC * Normal IVC dimensions and inspiratory collapse. Pulmonary Artery * Pulmonary artery not well visualized. Consult Discharge Plan - Plan Referrals: Román Gay [Primary Care Provider] - (2) HTN (hypertension) Qualifiers: Hypertension type: essential hypertension Qualified Code(s): I10 - Essential (primary) hypertension
--- NOTE | 2018-11-22 14:00 | Discharge Summary ---
<Bess South I - Last Filed: 11/22/18 15:45> - NOTES TO OUTPATIENT PROVIDER Notes to Outpatient Provider: Mr Hough presented to the ER with complaints of an episode of shortness of breath with dizziness and diaphoresis .EKG shows sinus bradycardia. Troponins are negative. No AV block. echo ef 55-60% . TSH n ormal . Most likely due to metoprolol use . home metoprolo was decreased from 50 bid to 25 bid and follow up with PCP upon discharge . Date of Encounter: 11/22/18 Time of Encounter: 09:05 - Discharge Diagnosis (1) Symptomatic bradycardia Priority: Primary Status: Acute (2) HTN (hypertension) Priority: Secondary Status: Chronic Qualifiers: Hypertension type: essential hypertension Qualified Code(s): I10 - Essential (primary) hypertension Hospital course: Mr. Hough is a 68 year old male with a history of CAD , stroke , hypertension , DVTs presents via EMS due to shortness of breath, dizziness and diaphoresis when he was washing his truck today morning . He state I felt like a drunk . The patient reports he has had shortness of breath as well as nausea and sore throat for the last several days. SOB Seems to be more with any type of activity. No syncopal episode. No chest pain , no lower limb swelling , no cough , no vomiting , no diarrhea or constipation. During admission he was found to be bradycardic HR 55 , BP 181/95, RR 15 , patient was placed on telemetry. EKG showes Sinus bradycardia with a rate of 55. Left axis deviation. Normal intervals. Normal R-wave progression. No gross ST elevations or depressions. T-wave inversion in lead 3. No ST depressions., CXR was normal , hb 12.5 , wbc 6.9 , creatinine 1.02 . He had ECHO done which showes EF 55-60% Normal LV chamber size, and function.Normal left ventricular diastolic function.Mild concentric left ventricular hypertrophy., TSH was normal . His Symptomatic sinus bradycardia: Most likely due to metoprolol use , we hold his metoprolol during hospital stay and heart rate was in 80s . patient is doing well , Hi symptoms are less likely due to stroke like episode .He will be discharged home and instructed to continue home med , stop metoprolol 50 mg bid and take metoprolol 25 mg bid and follow up with PCP . - Time Spent with Patient Total time spent providing and/or coordinating discharge services: - Discharge Medications Prescriptions: New Metoprolol Tartrate [Lopressor] 25 mg PO BID 30 Days #30 tablet Continued Acetaminophen with Codeine [Acetaminophen-Cod #3 Tablet] 1 tab PO BID ALPRAZolam [Xanax 1 MG Tablet] 1 mg PO BID PRN PRN Reason: Anxiety Amlodipine Besylate 10 mg PO DAILY Aspirin [Lo-Dose Aspirin EC] 81 mg PO DAILY Cholecalciferol (D-3) [Vitamin D] 1,000 unit PO DAILY Citalopram Hydrobromide [Citalopram HBr] 20 mg PO HS Furosemide [Lasix] 20 mg PO DAILY PRN PRN Reason: Edema Gabapentin 600 mg PO TID Lisinopril [Zestril] 20 mg PO HS Multivitamin [One-Daily Multi-Vitamin] 1 tab PO DAILY Omeprazole 20 mg PO BID Rosuvastatin Calcium 5 mg PO HS Discontinued Metoprolol Tartrate 50 mg PO BID Home Medications: ALPRAZolam [Xanax 1 MG Tablet] 1 mg PO BID PRN 11/21/18 [History] Acetaminophen with Codeine [Acetaminophen-Cod #3 Tablet] 1 tab PO BID 11/21/18 [History] Amlodipine Besylate 10 mg PO DAILY 11/21/18 [History] Aspirin [Lo-Dose Aspirin EC] 81 mg PO DAILY 11/21/18 [History] Cholecalciferol (D-3) [Vitamin D] 1,000 unit PO DAILY 11/21/18 [History] Citalopram Hydrobromide [Citalopram HBr] 20 mg PO HS 11/21/18 [History] Furosemide [Lasix] 20 mg PO DAILY PRN 11/21/18 [History] Gabapentin 600 mg PO TID 11/21/18 [History] Lisinopril [Zestril] 20 mg PO HS 11/21/18 [History] Multivitamin [One-Daily Multi-Vitamin] 1 tab PO DAILY 11/21/18 [History] Omeprazole 20 mg PO BID 11/21/18 [History] Rosuvastatin Calcium 5 mg PO HS 11/21/18 [History] Metoprolol Tartrate [Lopressor] 25 mg PO BID 30 Days #30 tablet 11/22/18 [Rx] Allergies/Adverse Reactions: Allergy/AdvReac Type Severity Reaction Status Date / Time No Known Allergies Allergy Verified 11/21/18 18:17 Date of admission: 11/21/18 14:15 Primary care physician: Román Gay - Constitutional Vitals: Temp Pulse Resp BP Pulse Ox 98.6 F 96 16 120/83 96 11/22/18 11:53 11/22/18 13:36 11/22/18 11:53 11/22/18 13:36 11/22/18 11:53 Exam: General: no acute distress , A&AX3 HEENT: Atraumatic, Normocephaly, sclera unicteric Neck: supple , Full ROM , trachea midline Cardiac: RRR , S1+. S2+, Lungs: Normal Breath Sounds Bilaterally, No Wheeze, Rales, Rhonchi Abdomen: Soft, Non-Tender ,no organomegaly , +bowel sounds Extremities: No Clubbing, No Cyanosis,or edema , Normal Pulses Skin : intact , Normal color Psychiatric : normal affect, normal mood Nuero : alert, normal gait, oriented X3 - Patient Status Disposition: Home, Self-Care Condition: Good Functional capacity at discharge: independent ambulation Overall status at discharge: patient is back to baseline - Discharge Instructions Instructions: Metoprolol (By mouth), Chronic Hypertension (DC), Bradycardia (DC) Follow Up With: Román Gay [Primary Care Provider] - (patient will call for hospital follow up) - Diet and Activity Activity: increase activity as tolerated Diet: low fat, low cholesterol <Heron Wiley - Last Filed: 11/22/18 18:20> Date of Encounter: 11/22/18 Hospital course: Mr. Hough is a 68 year old male - Time Spent with Patient Total time spent providing and/or coordinating discharge services: Date of admission: 11/21/18 14:15 Primary care physician: Román Gay - Constitutional Vitals: Temp Pulse Resp BP Pulse Ox 98.6 F 96 16 120/83 96 11/22/18 11:53 11/22/18 13:36 11/22/18 11:53 11/22/18 13:36 11/22/18 11:53 - Attending Attestation I saw evaluated and examined this patient and reviewed objective data including labs and my medical decision-making was reviewed with the Resident Physician/Medical Student. I agree with the documented findings, disposition and treatment plan as described except to any changes set forth below. We independently had [id number] contact with the patient.
--- NOTE | 2018-11-22 15:17 | Electrocardiograph Report ---
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
[2018-11-22] MEDS ORDERED: ALPRAZolam 1 MG TABLET PO PRN (21:00)
--- NOTE | 2018-11-23 17:54 | Electrocardiograph Report ---
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
== END 2018-11-22 16:36 | disposition home or self-care (01) ==
LOC: EMEROOARM 12:18 → 2NENU 12:18 → SUATTDRO 14:15 → 2NENU 15:40
PROVIDERS: ADMIT Internal Medicine; ATTEND Student in an Organized Health Care Education/Training Program